=== PATIENT | female | born 1985 | race Caucasian/White ===

== ENCOUNTER 2019-06-02 08:26 | Inpatient (IN) | payer OTHER ==
[2019-06-02] MEDS ORDERED: Buffered Lidocaine 1% SYRIN* 1 ML/SYRINGE INTRADERM ONE (10:30)
[2019-06-02] MEDS ORDERED: Lactated Ringers 1000 ML Bag* 1,000 ML IV ONE ×2 (10:30→13:35)
--- NOTE | 2019-06-02 10:41 | HP ---
General Information - Reason for Visit irregular ctx, advanced dilation, augmentation of labor - General Information Maternal Age: 33 Grav: 5 Para: 2 - 2021 SAB: 2 IEA: 0 Estimated Due Date: 06/08/19 Determined By: Early Ultrasound Maternal Blood Type and Rh: O Positive - Results this Serology/RPR Result: Non-Reactive Rubella Result: Immune HBsAg Result: Negative HIV Result: Negative GBS Culture Result: Negative Past Medical History Delivery History: Hx Uncomplicated Vaginal Delivery Pertinent Past Medical History: See Records - Anxiety, hx of depression, tobacco use disorder, HPV + Pertinent Past Surgical History: See Records - R oophrectomy and salpenidectomy Pertinent Family History: See Records - F: type 2 diabetes; M: DM, hypothyroid - Antepartal Records Antepartal Records: Reviewed, Complicated by: - anxiety, history of depression, tobacco use, HPV + Review of Systems Constitutional: Uncomfortable CV Complaint: No Respiratory: Shortness of Breath: No Gastrointestinal: No Nausea/Vomiting, Normal Bowel Movement Genitourinary: No Dysuria, No Bleeding, No Leaking Fluid Musculoskeletal: Contractions Neurological: No Headache, No Visual Changes Movement: Normal Exam Allergies/Adverse Reactions: Allergies hydrocodone [From Vicodin] Allergy (Verified 02/10/19 14:57) Vomiting T:98.2, P:90, R:18, BP:108/73, O2:100% - Measurements Height: 5 ft 4 in Weight: 112 lb Body Mass Index (BMI): 19.2 Pre- Weight: 98 lb - Exam Breast: Breast Exam Deferred CVA: No CVA Tenderness Extremities: No Edema Heart: Normal Rhythm/Heart Sounds HEENT: No Significant Findings Lungs: Clear Bilaterally Rectal: Rectal Exam Deferred Reflexes: DTR 2+ Thyroid: No Thyromegaly - Abdominal Exam Abdomen Exam: Fundal Height Consistent with Dates - Ultrasound/Biophysical Profile Ultrasound Status: Not Done Targeted Exam Findings Estimated Weight: 6lbs Cervical Exam: 5cm, 6cm Effacement: 100% Station: +1 Presenting Part: Vertex Membrane Status: Intact Bleeding/Discharge: None EFM Findings - External Monitor Findings Baseline Heart Rate: 120 External Monitor Findings: Accelerations Present, No Pattern of Variable or Late Decelerations, Variability Moderate, Baseline Stable Contractions: Irregular, Mild, Moderate, 45-90 Seconds Contraction Frequency: 10-15 Assessment/Plan - Assessment 33 y.o. , 39.1EGA, labor augmentation - Obstetrical Risk Factors Obstetrical Risk Factors: Tobacco Use, Psychiatric Issues - Plan Plan: Admit - Anticipate Vaginal Delivery Plan Comment: AROM - Date/Time of Admission Date of Admission: 06/02/19 Time of Admission: 10:40
[2019-06-02] MEDS ORDERED: Lactated Ringers 1000 ML Bag* 1,000 ML IV SCH ×3 (11:00→15:00)
[2019-06-02 11:11] LABS: ABS Basophils 0.1 10^3/ul (0-0.2); ABS Lymphocytes 1.8 10^3/ul (1.0-4.8); ABS Monocytes 0.7 10^3/ul (0-0.8); ABS Neutrophils 8.6 10^3/ul (1.5-7.7); Eosinophil % 0.2 %; Hematocrit 40 % (35-47); Hemoglobin 14.1 g/dL (12.0-16.0); Lymphocyte % 16.5 %; Mean Corpuscular HGB Conc 35 g/dL (31-36); Mean Corpuscular Hemoglobin 32 pg (27-31); Mean Corpuscular Volume 92 fL (80-97); Platelet Count 235 10^3/uL (150-450); Red Blood Count 4.37 10^6 /uL (3.70-4.87); Red Cell Distribution Width 13 % (10-15); White Blood Count 11.2 10^3/uL (3.5-10.8)
[2019-06-02] MEDS ORDERED: OBEPIDURAL* 250 ML EPIDURAL ONE (11:59)
--- NOTE | 2019-06-02 13:26 | PN ---
Progress Note - Progress Note Date of Service: 06/02/19 SOAP: Subjective: Pt more comfortable since epidural but continues to feel pain with peak of ctx and pressure. Objective: BP:112/66, P:74, FHR: 125bpm, + accels, early decels, moderate variability, cervix: 8cm/100%/+1 Assessment: 33 y.o. , 39w1d EGA, active labor, VSS Plan: 1) Position changes 2) Anticipate vaginal delivery
[2019-06-02] MEDS ORDERED: Sodium Citrate/Citric Acid* 15 ML UDC PO PRN (13:35)
[2019-06-02] MEDS ORDERED: Phenylephrine 40 MCG/ML SYRINGE IV PUSH PRN ×2 (13:35)
[2019-06-02] MEDS ORDERED: Famotidine TAB* 20 MG PO PRN (13:35)
[2019-06-02] MEDS ORDERED: OBEPIDURAL* 250 ML EPIDURAL SCH (14:00)
[2019-06-02] MEDS ORDERED: Witch Hazel PAD* JAR TOPICAL PRN (14:57)
[2019-06-02] MEDS ORDERED: Dibucaine 1% 28.35 GM TUBE PR PRN (14:57)
[2019-06-02] MEDS ORDERED: Glycerin ADULT SUPP PR PRN (14:57)
--- NOTE | 2019-06-02 15:02 | PROCNOTE ---
[facility] OB: Delivery Note - Delivery A Date of : 06/02/19 Time of : 14:36 [place] Sex: Male Score 1 Minute: 9 Gestational Age in Weeks and Days at Delivery: 39 Weeks and 1 Days Delivery Method: Spontaneous Vaginal Labor: Spontaneous Did Patient attempt ?: N/A, No Previous Amniotic Fluid: Clear Estimated Blood Loss: 70 Anesthesia/Analgesia: CEI for Labor Anesthesia Comment: Epidural for labor Delivered By: Natalya Cowart - Nurseedgar Level of Nursery: Regular/Bedside - Perineum Perineal Injury: None/Intact Perineal Repair: None - Events Delivery Events of Note: None Apply
[2019-06-02 17:02] LABS: Urine Benzodiazepine Screen None Detected (None Detect); Urine Opiates Screen None Detected (None Detect)
[2019-06-02] MEDS ORDERED: Simethicone TAB* 80 MG TAB.CHEW PO SCH (17:30)
[2019-06-02] MEDS: Nicotine PATCH 14 MG/24 HR* PATCH TRANSDERM SCH (18:34)
[2019-06-02] MEDS: Docusate CAP* 100 MG PO SCH (20:49)
[2019-06-02] MEDS: Ibuprofen TAB* 600 MG PO PRN (20:50)
[2019-06-03] MEDS: Acetaminophen TAB* 325 MG PO PRN ×2 (00:48→12:56)
[2019-06-03] MEDS ORDERED: Nicotine Patch Removal NOTE FOLLOW UP SCH (06:00)
[2019-06-03 06:23] LABS: ABS Basophils 0.1 10^3/ul (0-0.2); ABS Eosinophils 0.1 10^3/ul (0-0.6); ABS Lymphocytes 3.5 10^3/ul (1.0-4.8); ABS Monocytes 1.1 10^3/ul (0-0.8); ABS Neutrophils 6.9 10^3/ul (1.5-7.7); Hematocrit 38 % (35-47); Hemoglobin 13.2 g/dL (12.0-16.0); Lymphocyte % 29.9 %; Mean Corpuscular HGB Conc 35 g/dL (31-36); Mean Corpuscular Hemoglobin 32 pg (27-31); Mean Corpuscular Volume 93 fL (80-97); Mean Platelet Volume 7.1 fL (7.4-10.4); Platelet Count 223 10^3/uL (150-450); Red Cell Distribution Width 13 % (10-15); White Blood Count 11.7 10^3/uL (3.5-10.8)
[2019-06-03] MEDS: Docusate CAP* 100 MG PO SCH ×2 (07:46→12:56)
[2019-06-03] MEDS: Ibuprofen TAB* 600 MG PO PRN (07:47)
[2019-06-03] MEDS: Nicotine PATCH 14 MG/24 HR* PATCH TRANSDERM SCH (07:49)
[2019-06-03] MEDS ORDERED: Ferrous Gluconate TAB* 324 MG TAB PO SCH (09:00)
[2019-06-03 12:13] VITALS: BP 101/66
== END 2019-06-03 21:10 | disposition home or self-care (01) | DRG 560 ==
LOC: MCHOBOUT 08:26 → MCHOB 10:34
PROVIDERS: ADMIT Midwife; ATTEND Midwife
PROC: 10E0XZZ Delivery of Products of Conception, External Approach (ICD-10-PCS; principal; 2019-06-02)
PROC: 10907ZC Drainage of Amniotic Fluid, Therapeutic from Products of Conception, Via Natural or Artificial Opening (ICD-10-PCS; 2019-06-02)
DX: O99.334 Smoking (tobacco) complicating childbirth (principal); O98.32 Other infections with a predominantly sexual mode of transmission complicating childbirth; Z37.0 Single live birth; O99.344 Other mental disorders complicating childbirth; F41.9 Anxiety disorder, unspecified; A63.0 Anogenital (venereal) warts; Z3A.39 39 weeks gestation of pregnancy
CPT/HCPCS: 36415; 80307; 85025; 86850; 86900; 86901; A9270-GY

== ENCOUNTER 2020-09-26 16:49 | Inpatient (IN) ==
[2020-09-26] MEDS ORDERED: Buffered Lidocaine 1% SYRIN 1 ml INTRADERM ONE (17:11)
[2020-09-26] MEDS ORDERED: Lactated Ringers 1000 ml BAG 1,000 ML IV ONE ×2 (17:11→18:18)
[2020-09-26 17:23] LABS: ABS Monocytes 0.8 10^3/ul (0-0.8); Eosinophil % 0.2 %; Hematocrit 40 % (35-47); Hemoglobin 13.8 g/dL (12.0-16.0); Lymphocyte % 15.2 %; Mean Corpuscular HGB Conc 35 g/dL (31-36); Mean Corpuscular Hemoglobin 32 pg (27-31); Mean Corpuscular Volume 93 fL (80-97); Mean Platelet Volume 7.3 fL (7.4-10.4); Platelet Count 235 10^3/uL (150-450); Red Blood Count 4.27 10^6 /uL (3.70-4.87); Red Cell Distribution Width 14 % (10-15); White Blood Count 12.8 10^3/uL (3.5-10.8)
[2020-09-26] MEDS ORDERED: fentaNYL 100 mcg/2 ml 50 MCG/ML VIAL ONE (17:36)
[2020-09-26] MEDS ORDERED: OBEPIDURAL 250 ML EPIDURAL ONE (17:37)
[2020-09-26] MEDS ORDERED: Lactated Ringers 1000 ml BAG 1,000 ML IV SCH ×2 (18:00→19:00)
[2020-09-26 18:01] LABS: Urine Benzodiazepine Screen None Detected (None Detect); Urine Cannabinoids Screen None Detected (None Detect); Urine Opiates Screen None Detected (None Detect)
[2020-09-26] MEDS ORDERED: Sodium Citrate/Citric Acid LIQ 15 ML UDC PO PRN (18:18)
[2020-09-26] MEDS ORDERED: Phenylephrine 40 mcg/mL 10mL (400mcg) SYRINGE IV PUSH PRN ×2 (18:18)
[2020-09-26] MEDS ORDERED: EPHEDrine (Pressors) 50 MG/ML VIAL IV PUSH PRN ×2 (18:18)
[2020-09-26] MEDS ORDERED: OBEPIDURAL 250 ML EPIDURAL SCH (19:00)
[2020-09-26] MEDS ORDERED: Oxytocin in LR 0 UNITS/0 ML BAG IVPB ONE (20:33)
[2020-09-26] MEDS ORDERED: Glycerin ADULT 2.4 gm SUPP PR PRN (21:20)
[2020-09-26] MEDS ORDERED: Witch Hazel PAD JAR TOPICAL PRN (21:20)
[2020-09-26] MEDS ORDERED: Ammonia Inhalant 1 EA AMP ONE (22:25)
[2020-09-26] MEDS ORDERED: Lidocaine 1% VIAL 10 MG/ML VIAL ONE (22:46)
[2020-09-27 05:43] LABS: ABS Basophils 0.1 10^3/ul (0-0.2); ABS Eosinophils 0.1 10^3/ul (0-0.6); ABS Lymphocytes 2.9 10^3/ul (1.0-4.8); ABS Monocytes 1.1 10^3/ul (0-0.8); ABS Neutrophils 9.5 10^3/ul (1.5-7.7); Eosinophil % 0.6 %; Hematocrit 33 % (35-47); Hemoglobin 11.5 g/dL (12.0-16.0); Mean Corpuscular HGB Conc 35 g/dL (31-36); Mean Corpuscular Hemoglobin 33 pg (27-31); Mean Corpuscular Volume 92 fL (80-97); Mean Platelet Volume 7.3 fL (7.4-10.4); Nucleated Red Blood Cells % 0.1; Platelet Count 205 10^3/uL (150-450); Red Blood Count 3.54 10^6 /uL (3.70-4.87); Red Cell Distribution Width 13 % (10-15); White Blood Count 13.6 10^3/uL (3.5-10.8)
[2020-09-27 19:30] VITALS: BP 106/67
== END 2020-09-27 22:27 | disposition home or self-care (01) | DRG 560 ==
LOC: MCHOBOUT 16:49 → MCHOB 17:16
PROVIDERS: ADMIT Midwife; ATTEND Midwife

== ENCOUNTER 2022-10-05 19:28 | Inpatient (IN) ==
[2022-10-05] MEDS ORDERED: Buffered Lidocaine 1% SYRIN 1 ml INTRADERM ONE (19:57)
[2022-10-05] MEDS ORDERED: Lactated Ringers 1000 ml BAG 1,000 ML IV ONE (19:57)
[2022-10-05] MEDS ORDERED: Lactated Ringers 1000 ml BAG 1,000 ML IV SCH (20:00)
[2022-10-05 20:17] LABS: ABS Lymphocytes 1.3 10^3/ul (1.0-4.8); ABS Monocytes 0.8 10^3/ul (0-0.8); ABS Neutrophils 11.2 10^3/ul (1.5-7.7); Eosinophil % 0.1 %; Hematocrit 40 % (35-47); Lymphocyte % 9.9 %; Mean Corpuscular HGB Conc 35 g/dL (31-36); Mean Corpuscular Hemoglobin 32 pg (27-31); Mean Corpuscular Volume 91 fL (80-97); Platelet Count 246 10^3/uL (150-450); Red Blood Count 4.43 10^6 /uL (3.70-4.87); Red Cell Distribution Width 14 % (10-15); White Blood Count 13.4 10^3/uL (3.5-10.8)
[2022-10-05 20:41] LABS: Urine Benzodiazepine Screen None Detected (None Detect); Urine Cannabinoids Screen None Detected (None Detect); Urine Opiates Screen None Detected (None Detect)
[2022-10-05] MEDS ORDERED: EPINEPHrine SULFITE FREE 1 MG/ML ONE (20:42)
[2022-10-05] MEDS ORDERED: Lidocaine 1% VIAL 10 MG/ML VIAL 30 ML ONE (20:42)
[2022-10-05] MEDS ORDERED: OBEPIDURAL (200 ML) 0 ML EPIDURAL ONE (20:42)
[2022-10-05] MEDS ORDERED: Oxytocin in LR 0 MILLI.UNIT/0 ML BAG IV ONE (22:42)
[2022-10-05] MEDS ORDERED: Glycerin ADULT 2.4 gm SUPP PR PRN (22:56)
[2022-10-05] MEDS ORDERED: Dibucaine 1% OINT 28.35 GM TUBE PR PRN (22:56)
[2022-10-05] MEDS ORDERED: Witch Hazel PAD JAR TOPICAL PRN (22:56)
[2022-10-06 08:57] LABS: ABS Eosinophils 0.1 10^3/ul (0-0.6); ABS Lymphocytes 2.2 10^3/ul (1.0-4.8); ABS Neutrophils 7.5 10^3/ul (1.5-7.7); Eosinophil % 1.1 %; Hematocrit 35 % (35-47); Hemoglobin 12.2 g/dL (12.0-16.0); Lymphocyte % 20.6 %; Mean Corpuscular HGB Conc 35 g/dL (31-36); Mean Corpuscular Hemoglobin 33 pg (27-31); Mean Corpuscular Volume 93 fL (80-97); Mean Platelet Volume 7.3 fL (7.4-10.4); Platelet Count 218 10^3/uL (150-450); Red Blood Count 3.75 10^6 /uL (3.70-4.87); Red Cell Distribution Width 13 % (10-15); White Blood Count 10.9 10^3/uL (3.5-10.8)
[2022-10-06] MEDS ORDERED: Methylergonovine 0.2 mg AMPULE 1 ml AMP ONE (15:15)
[2022-10-06 19:54] VITALS: BP 105/64
== END 2022-10-06 23:52 | disposition home or self-care (01) | DRG 560 ==
LOC: MCHOBOUT 19:28 → MCHOB 19:53
PROVIDERS: ADMIT Midwife; ATTEND Midwife